=== PATIENT | male | born 1965 | race Caucasian/White ===

== ENCOUNTER 2021-12-05 01:58 | Inpatient (IN) | payer MEDICAID, OTHER ==
[~2021-12-05] VITALS: Ht 170.2 cm; Wt 91.6 kg
[~2021-12-05 01:58] MED LIST: BENZ-52 PO; CETI-24 PO; COUM1TAB17 OR; HALO1TAB21 GT; HYDR-4274 GT; HYDR25TA8 OR; MAGN1CAP PO; MULTIVIT PO; OMEP40CA5 PO; OXYC1TAB23 PO; PRIL40CA OR; THIO10CA2 OR; THIO5CAP OR; TRIC145T19 FT; VRAY3CAP PO; XANA1TAB2 OR; XANA2TAB2 OR; XARE20TA PO; trilipix PO
[2021-12-05 04:01] LABS: HEMATOCRIT 42.1 % (42.0-52.0); HEMOGLOBIN 14.5 g/dl (13.5-17.5); MEAN CORPUSCULAR HEMOGLOBIN 31.4 pg (27.0-33.0); MEAN CORPUSCULAR HGB CONC 34.4 g/dl (32.0-36.5); MEAN CORPUSCULAR VOLUME 91.1 fl (80.0-96.0); PLATELET COUNT, AUTOMATED 208 10^3/uL (150-450); RED BLOOD COUNT 4.62 10^6/uL (4.30-6.10); WHITE BLOOD COUNT 6.1 10^3/uL (4.0-10.0)
[2021-12-05 04:27] LABS: AMPHETAMINES LEVEL URINE NEGATIVE (NEGATIVE); BARBITURATES URINE NEGATIVE (NEGATIVE); BENZODIAZEPINES URINE NEGATIVE (NEGATIVE); CANNABINOIDS URINE POSITIVE (NEGATIVE); COCAINE METABOLITE URINE NEGATIVE (NEGATIVE); METHADONE URINE NEGATIVE (NEGATIVE); OPIATES URINE NEGATIVE (NEGATIVE); PHENCYCLIDINE URINE NEGATIVE (NEGATIVE)
[2021-12-05 04:33] LABS: ACETAMINOPHEN LEVEL < 2.0 UG/ML (10.0-30.0); ALBUMIN 3.8 GM/DL (3.2-5.2); ALT/SGPT 85 U/L (12-78); BILIRUBIN,DIRECT 0.1 MG/DL (0.0-0.2); BILIRUBIN,TOTAL 0.4 MG/DL (0.2-1.0); BLOOD UREA NITROGEN 12 MG/DL (7-18); CALCIUM LEVEL 8.7 MG/DL (8.5-10.1); CARBON DIOXIDE LEVEL 27 MEQ/L (21-32); CHLORIDE LEVEL 109 MEQ/L (98-107); CREATININE FOR GFR 0.71 MG/DL (0.70-1.30); ETHYL ALCOHOL (ETHANOL) 0.047 % (0.000-0.010); GLOMERULAR FILTRATION RATE > 60.0 (>56); GLUCOSE, FASTING 108 MG/DL (70-100); POTASSIUM SERUM 3.9 MEQ/L (3.5-5.1); SALICYLATE LEVEL < 1.7 MG/DL (5.0-30.0); SODIUM LEVEL 146 MEQ/L (136-145); TOTAL PROTEIN 7.2 GM/DL (6.4-8.2)
[2021-12-05 04:58] LABS: RSV AMPLIFICATION NEGATIVE (NEGATIVE)
[2021-12-05] MEDS ORDERED: VRAY6CAP PO (08:50)
[2021-12-05] MEDS ORDERED: METF500T13 PO (08:50)
[2021-12-05] MEDS ORDERED: LORA-622 PO (08:50)
[2021-12-05] MEDS ORDERED: [UNRECOGNIZED DRUG - OTHER] (08:51)
[2021-12-05] MEDS ORDERED: HOME MED LIST COMPLETE! XX SCH (08:55)
[2021-12-05] MEDS ORDERED: BENZTROPINE 1 MG TAB PO SCH (09:00)
[2021-12-05] MEDS ORDERED: OMEPRAZOLE 20MG CAP PO SCH (09:00)
[2021-12-05] MEDS ORDERED: CETIRIZINE (ZyrTEC) 10 MG TAB PO SCH (09:00)
[2021-12-05] MEDS ORDERED: MAGNESIUM GLUCONATE 500 MG TAB PO SCH (09:00)
[2021-12-05] MEDS ORDERED: CARIPRAZINE 3MG CAPSULE (VRAYLAR) PO SCH ×2 (09:00)
[2021-12-05] MEDS ORDERED: LORATADINE 10 MG TAB PO SCH (09:00)
[2021-12-05] MEDS ORDERED: metFORMIN (GLUCOPHAGE) 500MG TAB PO SCH (09:00)
[2021-12-05] MEDS ORDERED: RIVAROXABAN 20 MG TAB (XARELTO) PO SCH ×2 (09:00→18:00)
[2021-12-05] MEDS ORDERED: MAALOX 30 ML SUSP *UDC PO PRN (12:20)
[2021-12-05] MEDS ORDERED: traZODone 50 MG TAB PO PRN (12:20)
[2021-12-05] MEDS ORDERED: OLANZapine 5 MG TAB PO PRN (12:20)
[2021-12-05] MEDS ORDERED: LORazepam 2 MG TAB PO PRN (12:20)
[2021-12-05] MEDS ORDERED: MOM 30ML SUSPENSION UDC PO PRN (12:20)
[2021-12-05] MEDS ORDERED: IBUPROFEN 400MG TAB PO PRN (12:20)
[2021-12-05] MEDS: FOLIC ACID 1 MG TAB PO SCH (16:47)
[2021-12-05] MEDS: MULTIVITAMINS/MINERALS THERAP 1 TAB PO SCH (16:47)
[2021-12-05] MEDS: THIAMINE 100 MG TAB PO SCH ×2 (16:47→21:25)
[2021-12-05] MEDS: NICOTINE 21MG/24HR 1 EA TRANSDERMAL TD SCH (16:48)
[2021-12-05] MEDS: RIVAROXABAN 20 MG TAB (XARELTO) PO SCH (17:06)
[2021-12-05] MEDS: BENZTROPINE 1 MG TAB PO SCH (21:25)
[2021-12-05 22:00] VITALS: BP 127/88
[2021-12-05] MEDS: diphenhydrAMINE 25MG CAP PO PRN (22:33)
[2021-12-06 06:00] VITALS: BP 128/85
[2021-12-06 08:17] VITALS: BP 128/85
[2021-12-06] MEDS: metFORMIN (GLUCOPHAGE) 500MG TAB PO SCH (08:22)
[2021-12-06] MEDS: MULTIVITAMINS/MINERALS THERAP 1 TAB PO SCH (08:22)
[2021-12-06] MEDS: LORATADINE 10 MG TAB PO SCH (08:23)
[2021-12-06] MEDS: THIAMINE 100 MG TAB PO SCH ×2 (08:23→20:22)
[2021-12-06] MEDS: CARIPRAZINE 3MG CAPSULE (VRAYLAR) PO SCH (08:23)
[2021-12-06] MEDS: FOLIC ACID 1 MG TAB PO SCH (08:23)
[2021-12-06] MEDS: BENZTROPINE 1 MG TAB PO SCH ×2 (08:23→20:22)
[2021-12-06] MEDS: OMEPRAZOLE 20MG CAP PO SCH (08:23)
[2021-12-06] MEDS: NICOTINE 21MG/24HR 1 EA TRANSDERMAL TD SCH (09:00)
[2021-12-06] MEDS: lamoTRIgine 25MG TAB PO SCH (10:36)
[2021-12-06] MEDS ORDERED: hydrOXYzine 50 MG TAB PO SCH (12:00)
[2021-12-06 14:07] VITALS: BP 135/82
[2021-12-06 16:36] VITALS: BP 135/82
[2021-12-06] MEDS: RIVAROXABAN 20 MG TAB (XARELTO) PO SCH (18:24)
[2021-12-06] MEDS ORDERED: NICOTINE 21MG/24HR 1 EA TRANSDERMAL TD PRN (20:10)
[2021-12-06] MEDS: hydrOXYzine 50 MG TAB PO PRN (20:23)
[2021-12-07 06:16] VITALS: BP 136/83
[2021-12-07 06:31] VITALS: BP 136/83
[2021-12-07] MEDS: THIAMINE 100 MG TAB PO SCH ×2 (08:13→20:10)
[2021-12-07] MEDS: MULTIVITAMINS/MINERALS THERAP 1 TAB PO SCH (08:13)
[2021-12-07] MEDS: CARIPRAZINE 3MG CAPSULE (VRAYLAR) PO SCH (08:13)
[2021-12-07] MEDS: LORATADINE 10 MG TAB PO SCH (08:13)
[2021-12-07] MEDS: OMEPRAZOLE 20MG CAP PO SCH (08:13)
[2021-12-07] MEDS: BENZTROPINE 1 MG TAB PO SCH ×2 (08:13→20:10)
[2021-12-07] MEDS: lamoTRIgine 25MG TAB PO SCH (08:13)
[2021-12-07] MEDS: metFORMIN (GLUCOPHAGE) 500MG TAB PO SCH (08:13)
[2021-12-07] MEDS: FOLIC ACID 1 MG TAB PO SCH (08:13)
[2021-12-07] MEDS ORDERED: SERTRALINE HCL 25 MG TABLET PO SCH (09:00)
[2021-12-07 09:39] LABS: CHOLESTEROL RISK RATIO 4.723 (<5)
[2021-12-07] MEDS ORDERED: HYDR50TA70 PO (10:47)
[2021-12-07] MEDS ORDERED: TRAZ-252 PO (10:47)
[2021-12-07] MEDS ORDERED: OMEP40CA5 PO (10:47)
[2021-12-07] MEDS ORDERED: NICO21PAT TD (10:47)
[2021-12-07] MEDS ORDERED: LORA-622 PO (10:47)
[2021-12-07] MEDS ORDERED: VRAY6CAP PO (10:47)
[2021-12-07] MEDS ORDERED: BENZ-52 PO (10:47)
[2021-12-07] MEDS ORDERED: LAMI25TA PO (10:47)
[2021-12-07] MEDS ORDERED: XARE20TA PO (10:47)
[2021-12-07] MEDS ORDERED: METF500T13 PO (10:47)
[2021-12-07] MEDS: RIVAROXABAN 20 MG TAB (XARELTO) PO SCH (17:36)
[2021-12-07 18:13] VITALS: BP 135/82
[2021-12-07] MEDS: diphenhydrAMINE 25MG CAP PO PRN (20:10)
[2021-12-07] MEDS: hydrOXYzine 50 MG TAB PO PRN (20:10)
[2021-12-08 06:34] VITALS: BP 136/83
[2021-12-08] MEDS: MULTIVITAMINS/MINERALS THERAP 1 TAB PO SCH (08:42)
[2021-12-08] MEDS: OMEPRAZOLE 20MG CAP PO SCH (08:42)
[2021-12-08] MEDS: CARIPRAZINE 3MG CAPSULE (VRAYLAR) PO SCH (08:42)
[2021-12-08] MEDS: BENZTROPINE 1 MG TAB PO SCH (08:42)
[2021-12-08] MEDS: metFORMIN (GLUCOPHAGE) 500MG TAB PO SCH (08:42)
[2021-12-08] MEDS: lamoTRIgine 25MG TAB PO SCH (08:42)
[2021-12-08] MEDS: LORATADINE 10 MG TAB PO SCH (08:42)
[2021-12-08] MEDS: FOLIC ACID 1 MG TAB PO SCH (08:42)
== END 2021-12-08 12:08 | disposition home or self-care (01) | DRG 750 ==
LOC: M ED 01:58 → M ED INP 12:18 → M PSY 15:13
PROVIDERS: ADMIT Psychiatry & Neurology Psychiatry; ATTEND Psychiatry & Neurology Psychiatry
DX: F20.0 Paranoid schizophrenia (principal); D68.59 Other primary thrombophilia; R45.851 Suicidal ideations; E11.9 Type 2 diabetes mellitus without complications; K21.9 Gastro-esophageal reflux disease without esophagitis; Z86.718 Personal history of other venous thrombosis and embolism; Z63.5 Disruption of family by separation and divorce; F10.10 Alcohol abuse, uncomplicated; F17.200 Nicotine dependence, unspecified, uncomplicated; F43.23 Adjustment disorder with mixed anxiety and depressed mood; Z79.899 Other long term (current) drug therapy; Z88.8 Allergy status to other drugs, medicaments and biological substances; Z79.01 Long term (current) use of anticoagulants; Z79.84 Long term (current) use of oral hypoglycemic drugs

== ENCOUNTER → 2022-09-07 | Outpatient (REF) | payer OTHER, MEDICAID, BC ==
[~2022-09-07] MED LIST changes: -BENZ-52 PO; +BENZ1TAB5 PO; +HYDR50TA70 PO; +LAMI25TA PO; +LORA-622 PO; +METF500T13 PO; +NICO21PAT TD; +TRAZ-252 PO; +VRAY6CAP PO; +[UNRECOGNIZED DRUG - OTHER]
[2022-09-07 10:32] LABS: APPEARANCE, URINE MANUAL CLEAR (CLEAR); COLOR, URINE MANUAL YELLOW (YELLOW)
[2022-09-07 10:33] LABS: BILIRUBIN, URINE MANUAL NEGATIVE (NEGATIVE); BLOOD URINE MANUAL POSITIVE (NEGATIVE); GLUCOSE, URINE (UA) MANUAL NEGATIVE (NEGATIVE); KETONE, URINE MANUAL NEGATIVE (NEGATIVE); LEUKOCYTE ESTERASE, URINE MAN NEGATIVE (NEGATIVE); NITRITE, URINE MANUAL NEGATIVE (NEGATIVE); PROTEIN, URINE MANUAL NEGATIVE (NEGATIVE)
[2022-09-07 10:56] LABS: BACTERIA, URINE NONE SEEN; HYALINE CAST, URINE NONE SEEN /lpf (0-1); MUCUS, URINE LARGE AMOUNT (NEGATIVE); SQUAMOUS EPITHELIAL CELL URINE NONE SEEN /hpf (SMALL AMT); WBC, URINE NONE SEEN /hpf (0-3)
== END ==
LOC: M SMT 09:56
PROVIDERS: ATTEND Physician Assistant
DX: R31.21 Asymptomatic microscopic hematuria (principal)

== ENCOUNTER → 2023-02-11 | Outpatient (CLI) | payer OTHER | LOC: M PLAIMG 12:36 | PROVIDERS: ATTEND Psychiatry & Neurology Neurology | DX: M43.02 Spondylolysis, cervical region (principal); M54.2 Cervicalgia; R20.2 Paresthesia of skin ==

== ENCOUNTER → 2024-05-11 | Outpatient (CLI) | payer OTHER, SELFPAY | LOC: M RAD 10:59 | PROVIDERS: ATTEND Physician Assistant | DX: I73.9 Peripheral vascular disease, unspecified (principal) ==

== ENCOUNTER → 2024-06-08 | Outpatient (CLI) | payer OTHER | LOC: M PLAIMG 07:54 | PROVIDERS: ATTEND Physician Assistant | DX: I87.321 Chronic venous hypertension (idiopathic) with inflammation of right lower extremity (principal); I74.5 Embolism and thrombosis of iliac artery ==

== ENCOUNTER 2025-06-02 12:59 | Emergency (ER) | payer OTHER ==
[~2025-06-02] VITALS: Ht 170.2 cm; Wt 85.9 kg
[~2025-06-02 12:59] MED LIST changes: +LORA-1164 PO; -LORA-622 PO
[2025-06-02 13:41] LABS: PLATELET COUNT, AUTOMATED 224 10^3/uL (150-450)
[2025-06-02 14:09] LABS: AMPHETAMINES LEVEL URINE NEGATIVE (NEGATIVE); BARBITURATES URINE NEGATIVE (NEGATIVE); BENZODIAZEPINES URINE NEGATIVE (NEGATIVE); COCAINE METABOLITE URINE NEGATIVE (NEGATIVE); METHADONE URINE NEGATIVE (NEGATIVE); OPIATES URINE NEGATIVE (NEGATIVE); PHENCYCLIDINE URINE NEGATIVE (NEGATIVE)
[2025-06-02 14:12] LABS: ETHYL ALCOHOL (ETHANOL) 0.005 % (0.000-0.010)
[2025-06-02 14:13] LABS: CANNABINOIDS URINE POSITIVE (NEGATIVE)
[2025-06-02 14:13] LABS: SALICYLATE LEVEL < 3.0 MG/DL (<30)
[2025-06-02 14:14] LABS: ALT/SGPT 30 U/L (7.0-40); AST/SGOT 27 U/L (<34); CALCIUM LEVEL 9.9 MG/DL (8.5-10.1); CARBON DIOXIDE LEVEL 29 MMOL/L (20-31); CHLORIDE LEVEL 106 MMOL/L (98-107); CREATININE FOR GFR 0.74 MG/DL (0.70-1.30); GLOMERULAR FILTRATION RATE > 90.0 (>56); POTASSIUM SERUM 4.1 MMOL/L (3.5-5.1); SODIUM LEVEL 143 MMOL/L (136-145)
[2025-06-02 16:03] VITALS: BP 152/83; TEMP 97; O2SAT 99
== END 2025-06-02 16:19 | disposition home or self-care (01) ==
LOC: M ED 12:59
DX: Z04.6 Encounter for general psychiatric examination, requested by authority (principal); E78.5 Hyperlipidemia, unspecified; G47.00 Insomnia, unspecified; F20.9 Schizophrenia, unspecified; F41.9 Anxiety disorder, unspecified; F17.210 Nicotine dependence, cigarettes, uncomplicated; F10.10 Alcohol abuse, uncomplicated; Z86.718 Personal history of other venous thrombosis and embolism; Z88.8 Allergy status to other drugs, medicaments and biological substances; Z79.84 Long term (current) use of oral hypoglycemic drugs; Z79.01 Long term (current) use of anticoagulants; Z79.899 Other long term (current) drug therapy